=== PATIENT | female | born 1965 | race Caucasian/White ===

== ENCOUNTER 2016-12-23 22:44 | Inpatient (IN) | payer BC ==
--- NOTE | ~2016-12-23 | DS ---
Discharge Summary [facility] [address] [place]. [address] NAME: SELENA AGUILAR : 69 STATUS : DIS IN PAT#: [id number] AGE: 51 ADM/REG DATE : 12/23/16 MR#: [id number] REPORT SERV DATE: 01/03/17 DICTATED BY: JOEY GIL DATE: 01/03/17 REPORT STATUS : Draft TRANSCRIBED BY: UMM DATE: 01/03/17 Data Collection from hospitalization DISCHARGE DIAGNOSIS(ES): 1. Coronary artery disease, status post drug-eluting stent to the ramus intermedius. 2. Hypertension. 3. Tobacco abuse. 4. Wheezing-questionable chronic obstructive pulmonary disease. 5. Congestive heart failure. 6. History of prior myocardial infarction. CONSULTATIONS: None. PROCEDURES PERFORMED: 1. Cardiac catheterization and percutaneous coronary intervention, 12/24/2016. 2. Renal color flow ultrasound, 12/25/2016. 3. Myocardial perfusion imaging study, 12/24/2016. MEDICATIONS: Tylenol 1300 mg twice a day as needed, aspirin 81 mg daily, Lipitor 40 mg at bedtime, Coreg 6.25 mg twice a day, Plavix 75 mg daily, Lasix 20 mg daily, Prinivil 5 mg daily, Nitrostat 0.4 mg sublingually as needed, and Klor-Con 20 mEq daily. CONDITION AT DISCHARGE: Stable. DISPOSITION: The patient was discharged home on a low-sodium, low-cholesterol, cardiac diet with activities as instructed. She would follow up with Dr. Michi Strickland in one to two weeks following discharge and would follow up with Dr. Rizwan Scott as instructed. HOSPITAL COURSE: This is a 51-year-old female who presented with a chief complaint of shortness of breath and chest pain. The patient said she has felt short of breath since 10/2016 and insists had become progressively worse. On 12/21/2016, after working her shift at [employer], she developed chest pain once she arrived home. She said that she had no chest pain while at work and reports walking two to three miles most night. She did report some associated shortness of breath and diaphoresis. She denied nausea or dizziness. She did report some "gas." She indicated that she had bilateral chest pain at the upper right and left chest that did not radiate elsewhere. The chest pain was rated a 6/10 at its most intense. At the time of the interview in the [facility], she was pain free. The pain lasted less than 5 minutes in duration. She said she had been seen on the day prior to this admission at [facility] [place], which is a Walk-In Clinic for these symptoms. Her blood pressure was found to be elevated. She states that she has a history of hypertension in the past but could not recall what medication she had been on previously. She had not taken anything for several years. She left without any prescriptions, although their records indicate that she was supposed to have been started on Lasix and valsartan. The patient denies any prior history of myocardial infarction, stroke, DVT, or pulmonary embolus. She was admitted to the hospital at this time for further evaluation and treatment. Upon admission, we were going to rule out myocardial infarction with serial troponins. They were mildly elevated at this time but remained flat. She was held n.p.o. We would consider Discharge Summary [address] [address] NAME: SELENA AGUILAR : 69 STATUS : DIS IN PAT#: [id number] AGE: 51 ADM/REG DATE : 12/23/16 MR#: [id number] REPORT SERV DATE: 01/03/17 DICTATED BY: JOEY GIL DATE: 01/03/17 REPORT STATUS : Draft TRANSCRIBED BY: UMM DATE: 01/03/17 proceeding with myocardial perfusion imaging since no stress tests have been done recently. Fasting lipid panel was going to be checked. She does have ongoing tobacco abuse. We counseled her regarding cessation. She does have an expiratory wheeze. Bronchodilator treatment was going to be initiated. D-dimer was going to be checked. The following day, a myocardial perfusion imaging study was performed. Images demonstrated decreased uptake of the radiopharmaceutical in the distal anterior apical and apical myocardial segment. This was very suggestive of previous myocardial infarction in distal LAD territory. IV enalapril was being given. She did complain of some chest pain. Her stress test was felt to have been abnormal. Troponin was borderline positive. It was felt that she would need to undergo cardiac catheterization and possible percutaneous coronary intervention. She was taken to the cardiac biological lab technician where she underwent the above-mentioned procedure. She tolerated this well. There were no complications. On 12/25/2016, she had no new complaints. She reported that all her complaints prior to and at the time of admission had resolved. She said she was feeling much better. She was in a sinus rhythm. Discharge planning was performed. We encouraged her to stop smoking. She was advised to obtain a primary care physician. Echocardiogram was performed. On 12/26/2016, she had no chest pain or shortness of breath. She had no edema. She remained in a normal sinus rhythm. Coreg was increased. Lisinopril was continued. Discharge instructions were given. Due to her improved and stable condition, she was discharged home with the above-stated instructions. Information collected by: Bhargavi Betancourt I submit the above information as my discharge summary. FLAKO/UMM Emmanuel Gil M.D. / [id number] CC: Cedric Schmid M.D.
--- NOTE | ~2016-12-23 | HP ---
History And Physical [place] [id number] [facility] [place]. [address] NAME: SELENA AGUILAR : 69 STATUS : ADM [facility] PAT#: [id number] AGE: 51 ADM/REG DATE : 12/23/16 MR#: [id number] REPORT SERV DATE: 12/24/16 DICTATED BY: POOJA MEEKS DATE: 12/24/16 REPORT STATUS : Draft TRANSCRIBED BY: UMM DATE: 12/24/16 DATE OF ADMISSION: 12/23/2016 Seen at [facility] in [place] recently. CHIEF COMPLAINT: Shortness of breath and chest pain. HISTORY OF PRESENT ILLNESS: The patient states that she has felt shortness of breath since 10/2016 that has become progressively worse. On Friday, 12/21, after working her shift at [employer], she developed chest pain once she arrived home. She states that she had no chest pain while at work and reports walking 2 to 3 miles most nights. She reports some associated shortness of breath and diaphoresis. Denies nausea or dizziness. Reports some "gas." She indicates bilateral chest pain at her upper right and left chest that did not radiate elsewhere. The chest pain was rated a 6 out of 10 at its most intense. At the time of interview in the [facility], she is pain-free. The episode lasted less than 5 minutes in duration. The patient reports that she was seen yesterday at [facility] in [place], a walk-in clinic, for these symptoms. Her blood pressure was found to be elevated. She states she has had a history of hypertension in the past but cannot recall what medication she has been on previously, has not taken anything for several years, and she reports she left without any scripts, although their records indicate she was to have been started on Lasix 20 daily and valsartan 80. The patient denies any personal history of myocardial infarction, stroke, DVT, or pulmonary embolus. The patient denies any recent fever or chills. No palpitations. No syncopal episodes. Denies PND or orthopnea. PAST MEDICAL HISTORY: 1. Elevated blood pressure. 2. Ongoing tobacco abuse. 3. Positive family history for early CAD. PAST SURGICAL HISTORY: None. SOCIAL HISTORY: She is single. She has one child. She is employed at [employer]. She walks 2 to 3 miles most nights. Smokes one pack per day for 30+ years. Rarely consumes alcohol. Denies illicits. FAMILY HISTORY: Father of a heart attack at the age of 58. REVIEW OF SYSTEMS: A 14-point review of systems performed, significant for HPI. No other contributory diagnoses identified. ALLERGIES: NO KNOWN DRUG ALLERGIES. HOME MEDICINES: Tylenol p.r.n. History And Physical [address] [place]. [address] NAME: SELENA AGUILAR : 69 STATUS : ADM [facility] PAT#: [id number] AGE: 51 ADM/REG DATE : 12/23/16 MR#: [id number] REPORT SERV DATE: 12/24/16 DICTATED BY: POOJA MEEKS DATE: 12/24/16 REPORT STATUS : Draft TRANSCRIBED BY: UMM DATE: 12/24/16 PHYSICAL EXAMINATION: BLOOD PRESSURE: 161/88. PULSE: 89. RESPIRATORY RATE: 16. TEMPERATURE: 98.1. O2 saturation 94% on room air. HEIGHT: 5 feet 6 inches. WEIGHT: 210 pounds. BMI 34. GENERAL: Cooperative, in no apparent distress. Diaphoretic from head to toe which the patient reports is unchanged. HEENT: Pupils 2 mm, sclera nonicteric. Nares patent. Moist mucous membranes. No xanthelasma. NECK: Trachea midline, no thyromegaly. No JVD. No bruits. LYMPH: No cervical lymphadenopathy. No supraclavicular lymphadenopathy. RESPIRATORY: Unlabored respirations. Breath sounds clear bilaterally to posterior auscultation. Expiratory wheeze bilaterally. CARDIOVASCULAR: Regular rate. No murmur, rub or gallop appreciated. Extremities without edema. Pulses 2+ bilaterally. ABDOMEN: Soft, nontender, nondistended, normal bowel sounds auscultated throughout. No organomegaly. SKIN: Warm, dry extremities. No pallor, or cyanosis. PSYCHIATRIC: Appropriate affect. Alert, oriented x3. LABORATORY DATA: Troponin 0.14, 0.15, and 0.13. Potassium 3.7 (previously 3.4), BUN 9, creatinine 1.01, glucose 163, magnesium 1.7, WBC 5.3, hemoglobin 16.5, hematocrit 49.1, and platelet count 291,000. EKG: Sinus rhythm with a first-degree AV block and lateral T-wave changes noted. ASSESSMENT AND PLAN: 1. Chest pain in a patient with risk factors of hypertension, ongoing tobacco abuse, and positive family history. She has been observed in the [facility] overnight to rule out myocardial infarction with serial troponins, mildly elevated but remained flat. The patient will be held n.p.o. Would consider proceeding with MPI today since no stress test has been done recently. We will ask rounding physician to see the patient prior to sending for a stress test. 2. Hypertension, amlodipine 5 mg daily at discharge. 3. Unknown cholesterol status, we will check a fasting lipid panel. 4. Ongoing tobacco abuse, counseled regarding cessation with noted expiratory wheeze. We will initiate bronchodilator treatment prior to MPI. 5. Shortness of breath. We will check a D-dimer although the patient received a Wells criteria score of 0. No PCP. We will ask Case Management to assess. JANN/UMM Pooja Meeks, MSN, [employer] / [id number] History And Physical [address] [address] NAME: SELENA AGUILAR : 69 STATUS : ADM [facility] PAT#: [id number] AGE: 51 ADM/REG DATE : 12/23/16 MR#: [id number] REPORT SERV DATE: 12/24/16 DICTATED BY: POOJA MEEKS DATE: 12/24/16 REPORT STATUS : Draft TRANSCRIBED BY: MODL DATE: 12/24/16 CC: Pooja Meeks, MSN, [employer]
[2016-12-23 21:30] LABS: BASOPHILS 0.4 %; BASOPHILS ABSOLUTE 0.02 10/3/uL (0.0-0.16); EOSINOPHILS 0 %; ER CBC TAT 0 Hrs 14 Mins; HEMATOCRIT 49.1 % (36.0-48.0); HEMOGLOBIN 16.5 g/dL (12.0-16.0); IMMATURE GRANULOCYTES 0.2 %; IMMATURE GRANULOCYTES ABSOLUTE 0.01 10/3/uL (0.0-0.11); LYMPHOCYTES 15.3 %; LYMPHOCYTES ABSOLUTE 0.81 10/3/uL (0.67-4.30); MEAN CORPUS HGB CONC 33.6 g/dL (32.0-36.0); MEAN CORPUSCULAR VOLUME 92.3 fL (80-100); MONOCYTES 7.8 %; MONOCYTES ABSOLUTE 0.41 10/3/uL (0.21-1.20); NEUTROPHILS 76.3 %; NEUTROPHILS ABSOLUTE 4.04 10/3/uL (2.02-8.40); PLATELET COUNT 291 10/3/uL (150-400); RED CELL COUNT 5.32 10/6/uL (4.0-5.6); WHITE BLOOD CELLS 5.3 10/3/uL (4.5-10.5)
[2016-12-23 21:32] LABS: MANUAL DIFF NO %
[2016-12-23 21:37] LABS: INTERNATIONAL NORMAL RATI 1.2 UNITS (-); PARTIAL THROMBO TIME 29.8 SEC (22.5-37.2); PROTIME (NOT ORD) 15.1 SEC (12.0-14.5)
[2016-12-23 21:43] LABS: BUN (BLOOD UREA NITROGEN) 9 MG/DL (6-23); CALCIUM, SERUM 8.2 MG/DL (8.5-10.4); CHLORIDE, SERUM 103 MMOL/L (96-112); CO2 (CARBON DIOXIDE) 25 MMOL/L (24-34); CREATININE 1.01 MG/DL (0.55-1.02); GFR AFRICAN AMERICAN 76 ML/MIN (>=60); GFR NON AFRICAN AMERICAN 65 ML/MIN (>=60); GLUCOSE, SERUM 163 MG/DL (60-99); POTASSIUM, SERUM 3.4 MMOL/L (3.5-5.3); SODIUM, SERUM 140 MMOL/L (135-148)
[2016-12-23 21:45] LABS: CHEST PAIN PROFILE TAT 0 Hrs 29 Mins; TROPONIN I 0.14 NG/ML (<0.05)
[~2016-12-23 22:44] MED LIST: 8 HOUR650 MG PO
[2016-12-24 04:43] LABS: POTASSIUM, SERUM 3.7 MMOL/L (3.5-5.3)
[2016-12-24 04:45] LABS: TROPONIN I 0.13 NG/ML (<0.05)
[2016-12-24 12:55] LABS: CHOL/HDL RATIO(NOT ORDER) 3.8 (0-5)
[2016-12-24 15:24] LABS: CHOL/HDL RATIO(NOT ORDER) 3.9 (0-5)
[2016-12-24 19:18] LABS: CPK 74 U/L (0-200)
[2016-12-24 19:20] LABS: CK-MB 2.7 NG/ML
[2016-12-25 05:35] LABS: HEMATOCRIT 45.3 % (36.0-48.0); HEMOGLOBIN 15.1 g/dL (12.0-16.0)
[2016-12-25 05:54] LABS: CALCIUM, SERUM 7.9 MG/DL (8.5-10.4); CHLORIDE, SERUM 106 MMOL/L (96-112); CO2 (CARBON DIOXIDE) 24 MMOL/L (24-34); CPK 75 U/L (0-200); CREATININE 0.74 MG/DL (0.55-1.02); GFR AFRICAN AMERICAN 110 ML/MIN (>=60); GFR NON AFRICAN AMERICAN 95 ML/MIN (>=60); POTASSIUM, SERUM 4.1 MMOL/L (3.5-5.3); SODIUM, SERUM 138 MMOL/L (135-148)
[2016-12-25 05:55] LABS: BUN (BLOOD UREA NITROGEN) 14 MG/DL (6-23); CK-MB 2.5 NG/ML; GLUCOSE, SERUM 96 MG/DL (60-99)
[2016-12-26 04:04] LABS: ALBUMIN 3.2 G/DL (3.5-5.0); BUN (BLOOD UREA NITROGEN) 13 MG/DL (6-23); CALCIUM, SERUM 8.2 MG/DL (8.5-10.4); CHLORIDE, SERUM 104 MMOL/L (96-112); CO2 (CARBON DIOXIDE) 25 MMOL/L (24-34); CREATININE 0.65 MG/DL (0.55-1.02); GFR AFRICAN AMERICAN 121 ML/MIN (>=60); GFR NON AFRICAN AMERICAN 104 ML/MIN (>=60); GLUCOSE, SERUM 94 MG/DL (60-99); PHOSPHORUS, SERUM 3.6 MG/DL (2.5-4.5); SODIUM, SERUM 139 MMOL/L (135-148)
[2016-12-26] MEDS ORDERED: ASAB PO (07:46)
[2016-12-26] MEDS ORDERED: L20 PO (07:47)
[2016-12-26] MEDS ORDERED: KLOR-CON M2020 MEQ PO (07:47)
[2016-12-26] MEDS ORDERED: NITROSTAT0.4 MG SL (07:48)
[2016-12-26] MEDS ORDERED: PLAVIX PO (07:49)
[2016-12-26] MEDS ORDERED: LIPITOR40 PO (07:49)
[2016-12-26] MEDS ORDERED: COREG6 PO (07:50)
[2016-12-26] MEDS ORDERED: PRIN5 PO (07:51)
== END 2016-12-26 10:05 | disposition home or self-care (01) | DRG 247 ==
LOC: ER 22:44 → CDU1 22:45 → CDU2 23:36 → SSU1 12-24 16:47
PROVIDERS: Clinical Nurse Specialist; Internal Medicine Cardiovascular Disease; Specialist
PROC: 027034Z Dilation of Coronary Artery, One Artery with Drug-eluting Intraluminal Device, Percutaneous Approach (ICD-10-PCS; principal; 2016-12-24)
PROC: 4A023N7 Measurement of Cardiac Sampling and Pressure, Left Heart, Percutaneous Approach (ICD-10-PCS; 2016-12-24)
PROC: B2151ZZ Fluoroscopy of Left Heart using Low Osmolar Contrast (ICD-10-PCS; 2016-12-24)
PROC: B2111ZZ Fluoroscopy of Multiple Coronary Arteries using Low Osmolar Contrast (ICD-10-PCS; 2016-12-24)
DX: I25.110 Atherosclerotic heart disease of native coronary artery with unstable angina pectoris (principal); I11.0 Hypertensive heart disease with heart failure; I50.22 Chronic systolic (congestive) heart failure; F17.210 Nicotine dependence, cigarettes, uncomplicated; E78.00 Pure hypercholesterolemia, unspecified; R06.02 Shortness of breath; E66.9 Obesity, unspecified; R00.9 Unspecified abnormalities of heart beat; I25.5 Ischemic cardiomyopathy; I25.2 Old myocardial infarction; Z82.49 Family history of ischemic heart disease and other diseases of the circulatory system
CPT/HCPCS: 71020; 78451; 80048; 80061; 80069; 82550; 82553; 82962; 83735; 84132; 84484; 84703; 85014; 85018; 85025; 85347; 85379; 85610; 85730; 93005; 93458; 93975; 99152; 99153; 99285; A9270-GY; A9502; C1725; C1769; C1874; C1887; C1894; C8929; C9600; J0360; J2250; J2405; J3010; Q9967